=== PATIENT | female | born 1965 | race American Indian/Alaskan Native ===

== ENCOUNTER 2016-11-03 11:15 | Inpatient (IN) | payer OTHER ==
[2016-11-03 12:00] LABS: Hematocrit 37.9 % (30.3-42.9); Hemoglobin 12.7 gm/dl (10.1-14.3); Mean Corpuscular HGB Conc 33 % (30-34); Mean Corpuscular Hemoglobin 30 pg (28-32); Mean Corpuscular Volume 90 fl (79-97); Platelet Count 346 K/mm3 (140-440); Red Blood Count 4.22 M/mm3 (3.65-5.03); White Blood Count 5.8 K/mm3 (4.5-11.0)
[2016-11-03 12:10] LABS: INR 1.03 (0.87-1.13); Partial Thromboplastin Time 27.2 Sec. (24.2-36.6)
--- NOTE | 2016-11-03 12:21 | Cat Scan Report ---
HEAD CT WITHOUT CONTRAST INDICATION: Neurologic deficits less than 6 hours or symptoms present upon awakening. 98N. COMPARISON: None similar. FINDINGS: Noncontrast head CT demonstrates normal ventricles. Symmetric, mild sulcal enlargement predominantly bifrontal and extending to the vertex. No acute or recent infarct, hemorrhage, mass effect or midline shift. Approximately 6 mm right inferior ganglionic hypodensity, possibly lacunar infarct or prominent perivascular space, amongst others as on axial series 2, image 20. No abnormal extra-axial fluid collections. Posterior fossa structures and basilar cisterns appear within normal limits. Right posterior ethmoid air cell opacification. Slight right sphenoid sinus mucosal thickening anteriorly as well. Clear remainder imaged frontal sinuses and mastoid air cells. Streak artifact from right earring. Radiopaque dental material anteriorly. Intact calvarium. Approximately 7 mm high right parietal scalp soft tissue density, axial image 50, possibly a sebaceous cyst. CONCLUSION: No acute intracranial CT abnormality with few other findings, as above. MRI is more sensitive for detection of acute infarct and may be useful for further evaluation in the setting of a focal neurologic deficit. I phoned the above results to Dr. Galvez in the ER, 12:15 PM, 11/03/2016. Thank you for the opportunity to participate in this patient's care.
[2016-11-03] MEDS ORDERED: ATIVAN ONE (12:31)
[2016-11-03] MEDS ORDERED: ATIVAN IV ONE ×2 (12:33→15:10)
--- NOTE | 2016-11-03 12:41 | Emergency Department Report ---
HPI - General Chief Complaint: High BP Time Seen by Provider: 11/03/16 12:25 - HPI HPI: Chief complaint: Shaking and weakness HPI: Patient is a 51-year-old female with a history of alcohol abuse, pancreatitis who presents today with diffuse shaking of her hands and generalized weakness. Patient states she drinks vodka every day at least 2 drinks and had more than usual last night the [employer]. Patient complains of occasional blurred vision. Patient complains of the left side of her face feels funny for the last several weeks. Patient states that family in her hands started this morning. Mode of arrival: EMS Source: Patient and old chart Began: See above Duration: See above Context: See above. No history of stroke. Patient is noncompliant with her blood pressure medicine. Quality: Patient denies pain Severity: 0 out of 10 Improved with: Trembling improved with Ativan Worsened with: Nothing Associated signs and symptoms: Occasional shortness of breath ED Past Medical Hx - Past Medical History Previous Medical History?: Yes Hx Hypertension: Yes Additional medical history: Pancreatitis - Surgical History Hx Cholecystectomy: Yes - Social History Smoking Status: Current Every Day Smoker Substance Use Type: Alcohol - Medications Home Medications: Home Medications Medication Instructions Recorded Confirmed Last Taken Type No Known Home Medications [No 11/03/16 11/03/16 Unknown History Reported Home Medications] ED Review of Systems ROS: Stated complaint: SHAKING/WEAK Other details as noted in HPI ROS Constitutional: No fever ENT: No uri symptoms Cardiovascular: No chest pain Respiratory: No sob or cough GI: No nausea vomiting or diarrhea : No dysuria frequency or urgency, Skin: No rash Neuro: No focal weakness , complains of left facial numbness Psych: Alcohol abuse Yan/lymph: No edema Physical Exam - Physical Exam Vital Signs: Vital Signs 11/03/16 11/03/16 11/03/16 11:28 11:30 11:31 Temperature 98.1 F Pulse Rate 110 H 110 H Respiratory 25 H 16 Rate Blood Pressure 197/122 197/122 Blood Pressure [Left] O2 Sat by Pulse 98 97 99 Oximetry 11/03/16 11/03/16 11/03/16 11:39 11:40 12:14 Temperature 98.1 F Pulse Rate 105 H 97 H 93 H Respiratory 16 21 27 H Rate Blood Pressure 187/109 Blood Pressure 197/122 [Left] O2 Sat by Pulse 99 99 98 Oximetry 11/03/16 12:22 Temperature Pulse Rate Respiratory 16 Rate Blood Pressure Blood Pressure [Left] O2 Sat by Pulse Oximetry Physical Exam: GENERAL: The patient is well-developed well-nourished . She is hypertensive. HEENT: Normocephalic. Atraumatic. Extraocular motions are intact. Patient has moist mucous membranes. NECK: Supple. No meningitic signs are noted. There is no adenopathy noted. CHEST/LUNGS: Clear to auscultation. There is no respiratory distress noted. HEART/CARDIOVASCULAR: Regular. There is mild tachycardia. There is no gallop rub or murmur. ABDOMEN: Abdomen is soft, nontender. Patient has normal bowel sounds. There is no abdominal distention. SKIN: There is no rash. There is no edema. There is no diaphoresis. NEURO: The patient is awake, alert, and oriented. The patient is cooperative. The patient has no focal neurologic deficits. Patient is tremulous. The patient has normal speech. MUSCULOSKELETAL: There is no tenderness or deformity. There is no limitation range of motion. There is no evidence of acute injury. ED Course Vital Signs 11/03/16 11/03/16 11/03/16 11:28 11:30 11:31 Temperature 98.1 F Pulse Rate 110 H 110 H Respiratory 25 H 16 Rate Blood Pressure 197/122 197/122 Blood Pressure [Left] O2 Sat by Pulse 98 97 99 Oximetry 11/03/16 11/03/16 11/03/16 11:39 11:40 12:14 Temperature 98.1 F Pulse Rate 105 H 97 H 93 H Respiratory 16 21 27 H Rate Blood Pressure 187/109 Blood Pressure 197/122 [Left] O2 Sat by Pulse 99 99 98 Oximetry 11/03/16 12:22 Temperature Pulse Rate Respiratory 16 Rate Blood Pressure Blood Pressure [Left] O2 Sat by Pulse Oximetry - Reevaluation(s) Reevaluation #1: 11/03/16 14:50 Patient was given 1 mg of Ativan which she states improved her trembling. ED Medical Decision Making - Lab Data Result diagrams: 11/03/16 11:47 11/03/16 11:47 Laboratory Tests 12/19/14 11/03/16 11/03/16 09:30 12:38 12:38 Magnesium 1.0 L Alkaline Phosphatase 148 H Albumin 3.8 L Lipase 159 H Ur Leukocyte Esterase Neg Urine WBC (Auto) 11.0 H Urine RBC (Auto) 9.0 U Epithel Cells (Auto) 7.0 Urine Bacteria (Auto) 1+ Urine HCG, Qual Negative Plasma/Serum Alcohol 0.07 - EKG Data -: EKG Interpreted by Me EKG shows normal: sinus rhythm Rate: tachycardia (102) - EKG Data When compared to previous EKG there are: previous EKG unavailable Interpretation: nonspecific ST-T wave janice - Radiology Data Radiology results: report reviewed (CT head shows no acute process. Positive for atrophy.) Critical care attestation.: If time is entered above; I have spent that time in minutes in the direct care of this critically ill patient, excluding procedure time. ED Disposition Clinical Impression: Hypomagnesemia, Hypokalemia Alcohol withdrawal Qualifiers: Complication of substance-induced condition: with unspecified complication Qualified Code(s): F10.239 - Alcohol dependence with withdrawal, unspecified Acute pancreatitis Qualifiers: Pancreatitis type: alcohol induced Acute pancreatitis complication: unspecified Qualified Code(s): K85.20 - Alcohol induced acute pancreatitis without necrosis or infection Hypertension Qualifiers: Hypertension type: essential hypertension Qualified Code(s): I10 - Essential ( primary) hypertension Disposition: OP ADMITTED IP TO THIS HOSP Is pt being admited?: Yes Does the pt Need Aspirin: Yes Condition: Fair Instructions: Hypertension (ED) Referrals: PRIMARY CARE, [Primary Care Provider] - 3-5 Days Time of Disposition: 15:02 (admit to the hospitalist)
[2016-11-03 12:46] LABS: Blastocytes % (Manual) 0 %
[2016-11-03 12:48] LABS: Diff Status Complete; Hypochromasia Few
[2016-11-03 13:11] LABS: Alanine Aminotransferase 21 units/L (7-56); Albumin 3.8 g/dL (3.9-5); Albumin/Globulin Ratio 1.1 %; Alkaline Phosphatase 148 units/L (35-129); Bilirubin,Total 0.5 mg/dL (0.1-1.2); Lipase 159 units/L (13-60); Total Protein 7.4 g/dL (6.3-8.2)
[2016-11-03 13:23] LABS: Anion Gap 30 mmol/L; BUN/Creatinine Ratio 8.57; Blood Urea Nitrogen 6 mg/dL (7-17); Calcium 8.6 mg/dL (8.4-10.2); Carbon Dioxide 18 mmol/L (22-30); Chloride 102.9 mmol/L (98-107); Glucose 93 mg/dL (65-100); Potassium 3.2 mmol/L (3.6-5.0); Sodium 148 mmol/L (137-145)
[2016-11-03] MEDS ORDERED: VITAMIN B-1 100 MG in NACL 0.9% 50 ML IV ONE (13:32)
[2016-11-03 13:39] LABS: Bilirubin,Direct < 0.2 mg/dL (0-0.2)
[2016-11-03] MEDS ORDERED: MAGNESIUM SULFATE 2GM/50ML 2 GM/50 ML BAG IV ONE (14:47)
[2016-11-03] MEDS ORDERED: K-DUR PO ONE (15:02)
[2016-11-03] MEDS ORDERED: ASPIRIN PO ONE (15:04)
--- NOTE | 2016-11-03 15:05 | Admit Criteria Form ---
Admission Criteria Documentation: ALCOHOL AND PSYCHOACTIVE SUBSTANCE WITHDRAWAL Clinical Indications for Inpatient Care (Place ' X' for any and all applicable criteria): Ongoing inpatient care may be indicated for substance withdrawal[B][C] with ANY ONE of the following(1)(2)(3)(4)(21): [ ]I. Delirium due to alcohol or sedative[D] withdrawal is present. [ X]II. Marked signs of withdrawal are present as indicated by ANY ONE of the following(15)(22)(23) [ ]a) Heart rate greater than 120 beats per minute is present. [ ]b) Severe vomiting is present (eg, precludes maintenance of oral hydration). [X ]c) Grossly visible tremor is present. [ ]d) Profuse perspiration is present. [ ]e) Temperature greater than 101 degrees F (38.3 degrees C) is present. [ ]f) Other signs of severe withdrawal are present (eg, Altered mental status ) [ ]g) Severe withdrawal identified by standardized assessment score[A] [ ]III. Signs of withdrawal that require continued inpatient treatment as indicated by ANY ONE of the following(15)(22)(23): [ ]a) Inadequate response to pharmacotherapy (eg, benzodiazepines) [ ]b) Outpatient or lower level of care is not feasible or appropriate (eg, unavailable or inappropriate to patient condition or treatment history). [ ]IV. Withdrawal signs with high-risk indicator are present as manifested by ALL of the following[A](15)(22)(23) [ ]a) Signs of withdrawal are present as indicated by ANY ONE of the following: [ ]i. Tachycardia is present. [ ]ii. Nausea or vomiting is present. [ ]iii. Tremor is present. [ ]iv. Increased perspiration is present. [ ]v. Other signs of withdrawal are present. [ ]vi. Withdrawal identified by standardized assessment score [A] [ ]b) Elevated risk due to historical or comorbid factor is present as indicated by ANY ONE of the following: [ ]i. History of delirium due to withdrawal is present. [ ]ii. History of seizures due to withdrawal is present.[E] [ ]iii. Intrinsic seizure disorder (epilepsy) is present. [ ]iv. Patient is . [ ]v. Other significant medical history (eg, severe cardiac disease) is present, which is assessed to be at risk for destabilization due to withdrawal. [ X]V. Serious electrolyte abnormalities (eg, hyponatremia, hypokalemia, hypophosphatemia) requiring correction performable only in inpatient setting(6)(25) [ ]. Severe hypoglycemia requiring glucose infusions performable only in inpatient setting(6) [ ]VII. Drug toxicity or instability, such as Altered mental status, respiratory depression, or arrhythmias, that requires inpatient care [ ]VIII. Danger judged unmanageable at lower level of care because of ANY ONE of the following [ ]a) Danger to self [ ]b) Danger to others [ ]c) Grave disability (eg, inability to perform self-care necessary at lower level of care) The original [facility] Care Guidelines content created by [facility] has been revised. The portions of the content which have been revised are identified through the use of italic text or in bold. [facility] Care Guidelines has neither reviewed nor approved the modified material. All other unmodified content is copyright [facility] Care [facility]. Please see references footnoted in the original [facility] Care[facility] edition 2016 Admission Criteria Met: Yes
--- NOTE | 2016-11-03 15:14 | XRay Report ---
CHEST ONE VIEW INDICATION: Shortness of breath. COMPARISON: 10/13/2007. FINDINGS: Portable, single, frontal chest radiograph demonstrates now normal cardiomediastinal silhouette. Clear lungs. Unremarkable bones. Extrinsic EKG leads. CONCLUSION: No acute disease in the chest. Thank you for the opportunity to participate in this patient's care.
[2016-11-03] MEDS ORDERED: DULCOLAX PR PRN (15:31)
[2016-11-03] MEDS ORDERED: ATIVAN IV PRN ×2 (15:31)
[2016-11-03] MEDS ORDERED: MILK OF MAGNESIA PO PRN (15:31)
[2016-11-03] MEDS ORDERED: MOTRIN PO PRN (15:31)
[2016-11-03] MEDS ORDERED: ZOFRAN IV PRN (15:31)
[2016-11-03] MEDS ORDERED: NS/KCL 20MEQ 20 MEQ/1,000 ML BAG IV SCH (16:00)
[2016-11-03] MEDS ORDERED: LIBRIUM ONE (17:38)
[2016-11-03] MEDS: LIBRIUM PO SCH (17:43)
[2016-11-03] MEDS: 1: FOLVITE 1 MG, INFUVITE 10 ML, VITAMIN B-1 100 MG in NACL 0.9% 1000 ML 988.8 ML 2: NA IV SCH (18:40)
--- NOTE | 2016-11-03 19:42 | History and Physical Report ---
History of Present Illness Date of examination: 11/03/16 Date of admission: 11/03/16 15:31 Chief complaint: Withdrawal History of present illness: Patient is a 52-year-old female with past medical history of hypertension, pancreatitis secondary to alcohol abuse, alcohol dependence who presents to the ER with complaints of diffuse shaking and generalized weakness. Patient reports that she favors vodka every day claims she drinks about 2 drinks a day but unable to quantify this. She reports that she did have a little bit more last night due to the [employer]. In the ER she had mentioned left-sided face feeling funny for the last several weeks but did not endorse this to me. I asked that she has any weakness on any side she just states that her whole body' s week.She's been tremulous since this morning. She denies Blurred vision, denies any vomiting or diarrhea. She does report nausea. She denies any abdominal pain or chest pain and this time. ROS Constitutional: Reports generalized weakness and fatigue No fever, or weight loss. Skin: No rash. Eyes: No recent vision problems or eye pain. ENT: No congestion, ear pain, or sore throat. Endocrine: No thyroid problems. Cardiovascular: No chest pain. Respiratory: No cough, shortness of breath, congestion, or wheezing. Gastrointestinal: No abdominal pain, nausea, vomiting, or diarrhea. Genitourinary: No dysuria. Musculoskeletal: No joint swelling. Neurologic: No seizures but reports generalized tremor. Hematologic: No unusual bruising or bleeding. Psychiatric: No psychiatric problems, hallucinations or depression. All other systems reviewed and otherwise negative. Past History Past Medical History: hypertension, other (alcohol dependence) Past Surgical History: cholecystectomy Social history: , alcohol abuse, full code. denies: smoking, prescription drug abuse, IV drug use Family history: diabetes, hypertension Medications and Allergies Allergies Allergy/AdvReac Type Severity Reaction Status Date / Time codeine Allergy Itching Verified 07/27/14 08:15 Home Medications Medication Instructions Recorded Confirmed Last Taken Type No Known Home Medications [No 11/03/16 11/03/16 Unknown History Reported Home Medications] Active Meds: Active Medications Bisacodyl (Dulcolax) 10 mg MI QDAY PRN PRN Reason: Constipation unrelieved by MOM Chlordiazepoxide HCl (Librium) 25 mg PO DAILY YUMIKO Last Admin: 11/03/16 17:43 Dose: 25 mg Folic Acid 1 mg/ Multivitamins /Minerals 10 ml/ Thiamine HCl 100 mg/ Sodium Chloride 1,000 mls @ 125 mls/hr IV .BY DURATION [facility] Last Admin: 11/03/16 18:40 Dose: 125 mls/hr Sodium Chloride (Nacl 0.9% 1000 Ml) 1,000 mls @ 125 mls/hr IV .BY DURATION [facility] Potassium Chloride/Sodium Chloride (Ns/Kcl 20meq) 20 meq in 1,000 mls @ 125 mls /hr IV DIRECT YUMIKO Ibuprofen (Motrin) 600 mg PO Q6H PRN PRN Reason: Pain, Mild (1-3) Lorazepam (Ativan) 2 mg IV Q1H PRN PRN Reason: CIWA-Ar 8-15 Lorazepam (Ativan) 4 mg IV Q1H PRN PRN Reason: CIWA-Ar 16-25 Magnesium Hydroxide (Milk Of Magnesia) 30 ml PO Q4H PRN PRN Reason: Constipation Ondansetron HCl (Zofran) 4 mg IV Q8H PRN PRN Reason: N/V unrelieved by Reglan Exam - Physical Exam Narrative exam: VITAL SIGNS: Reviewed. GENERAL: The patient appeared well nourished and normally developed. Vital signs as documented. HEAD: No signs of head trauma. EYES: Pupils are equal. Extraocular motions intact. EARS: Hearing grossly intact. MOUTH: Oropharynx is normal. NECK: No adenopathy, no JVD. CHEST: Chest with clear breath sounds bilaterally. No wheezes, rales, or rhonchi. CARDIAC: Regular rate and rhythm. S1 and S2, without murmurs, gallops, or rubs. VASCULAR: No Edema. Peripheral pulses normal and equal in all extremities. ABDOMEN: Soft, without detectable tenderness. No sign of distention. No rebound or guarding, and no masses palpated. Bowel Sounds normal. MUSCULOSKELETAL: Good range of motion of all major joints. gait is not assessed. Extremities without clubbing, cyanosis or edema. NEUROLOGIC EXAM: Awake but lethargic, oriented x 3. Generalized tremor. No focal sensory or strength deficits. Speech normal. Follows commands. PSYCHIATRIC: Mood normal. SKIN: No rash or lesions. - Constitutional Vitals: Temp Pulse Resp BP Pulse Ox 98.1 F 88 15 151/93 97 11/03/16 11:39 11/03/16 19:00 11/03/16 19:00 11/03/16 19:00 11/03/16 19:00 Results - Labs CBC & Chem 7: 11/03/16 11:47 11/03/16 11:47 Labs: Laboratory Last Values WBC 5.8 K/mm3 (4.5-11.0) 11/03/16 11:47 RBC 4.22 M/mm3 (3.65-5.03) 11/03/16 11:47 Hgb 12.7 gm/dl (10.1-14.3) 11/03/16 11:47 Hct 37.9 % (30.3-42.9) 11/03/16 11:47 MCV 90 fl (79-97) 11/03/16 11:47 MCH 30 pg (28-32) 11/03/16 11:47 MCHC 33 % (30-34) 11/03/16 11:47 RDW 15.0 % (13.2-15.2) 11/03/16 11:47 Plt Count 346 K/mm3 (140-440) 11/03/16 11:47 Isabela % (Auto) Trim Machine Operator 11/03/16 11:47 Add Manual Diff Complete 11/03/16 11:47 Total Counted 100 11/03/16 11:47 Seg Neuts % (Manual) 85.0 % (40.0-70.0) H 11/03/16 11:47 Band Neutrophils % 0 % 11/03/16 11:47 Lymphocytes % (Manual) 10.0 % (13.4-35.0) L 11/03/16 11:47 Reactive Lymphs % (Man) 0 % 11/03/16 11:47 Monocytes % (Manual) 1.0 % (0.0-7.3) 11/03/16 11:47 Eosinophils % (Manual) 3.0 % (0.0-4.3) 11/03/16 11:47 Basophils % (Manual) 1.0 % (0.0-1.8) 11/03/16 11:47 Metamyelocytes % 0 % 11/03/16 11:47 Myelocytes % 0 % 11/03/16 11:47 Promyelocytes % 0 % 11/03/16 11:47 Blast Cells % 0 % 11/03/16 11:47 Nucleated RBC % Not Reportable 11/03/16 11:47 Seg Neutrophils # Man 4.9 K/mm3 (1.8-7.7) 11/03/16 11:47 Band Neutrophils # 0.0 K/mm3 11/03/16 11:47 Lymphocytes # (Manual) 0.6 K/mm3 (1.2-5.4) L 11/03/16 11:47 Abs React Lymphs (Man) 0.0 K/mm3 11/03/16 11:47 Monocytes # (Manual) 0.1 K/mm3 (0.0-0.8) 11/03/16 11:47 Eosinophils # (Manual) 0.2 K/mm3 (0.0-0.4) 11/03/16 11:47 Basophils # (Manual) 0.1 K/mm3 (0.0-0.1) 11/03/16 11:47 Metamyelocytes # 0.0 K/mm3 11/03/16 11:47 Myelocytes # 0.0 K/mm3 11/03/16 11:47 Promyelocytes # 0.0 K/mm3 11/03/16 11:47 Blast Cells # 0.0 K/mm3 11/03/16 11:47 WBC Morphology Not Reportable 11/03/16 11:47 Hypersegmented Neuts Not Reportable 11/03/16 11:47 Hyposegmented Neuts Not Reportable 11/03/16 11:47 Hypogranular Neuts Not Reportable 11/03/16 11:47 Smudge Cells Not Reportable 11/03/16 11:47 Toxic Granulation Not Reportable 11/03/16 11:47 Toxic Vacuolation Not Reportable 11/03/16 11:47 Dohle Bodies Not Reportable 11/03/16 11:47 Pelger-Huet Anomaly Not Reportable 11/03/16 11:47 Taniya Rods Not Reportable 11/03/16 11:47 Platelet Estimate Appears normal 11/03/16 11:47 Clumped Platelets Not Reportable 11/03/16 11:47 Plt Clumps, EDTA Not Reportable 11/03/16 11:47 Large Platelets Not Reportable 11/03/16 11:47 Giant Platelets Not Reportable 11/03/16 11:47 Platelet Satelliting Not Reportable 11/03/16 11:47 Plt Morphology Comment Not Reportable 11/03/16 11:47 RBC Morphology Not Reportable 11/03/16 11:47 Dimorphic RBCs Not Reportable 11/03/16 11:47 Polychromasia Not Reportable 11/03/16 11:47 Hypochromasia Few 11/03/16 11:47 Poikilocytosis Not Reportable 11/03/16 11:47 Anisocytosis Not Reportable 11/03/16 11:47 Microcytosis Not Reportable 11/03/16 11:47 Macrocytosis Not Reportable 11/03/16 11:47 Spherocytes Not Reportable 11/03/16 11:47 Pappenheimer Bodies Not Reportable 11/03/16 11:47 Sickle Cells Not Reportable 11/03/16 11:47 Target Cells Not Reportable 11/03/16 11:47 Tear Drop Cells Not Reportable 11/03/16 11:47 Ovalocytes Not Reportable 11/03/16 11:47 Helmet Cells Not Reportable 11/03/16 11:47 Amato-Longdale Bodies Not Reportable 11/03/16 11:47 [place] Rings Not Reportable 11/03/16 11:47 [place] Cells Not Reportable 11/03/16 11:47 Bite Cells Not Reportable 11/03/16 11:47 Crenated Cell Not Reportable 11/03/16 11:47 Elliptocytes Not Reportable 11/03/16 11:47 Acanthocytes (Spur) Not Reportable 11/03/16 11:47 Rouleaux Not Reportable 11/03/16 11:47 Hemoglobin C Crystals Not Reportable 11/03/16 11:47 Schistocytes Not Reportable 11/03/16 11:47 Malaria parasites Not Reportable 11/03/16 11:47 Ryne Bodies Not Reportable 11/03/16 11:47 Hem Pathologist Commnt No 11/03/16 11:47 PT 13.4 Sec. (12.2-14.9) 11/03/16 11:47 INR 1.03 (0.87-1.13) 11/03/16 11:47 APTT 27.2 Sec. (24.2-36.6) 11/03/16 11:47 Sodium 148 mmol/L (137-145) H 11/03/16 11:47 Potassium 3.2 mmol/L (3.6-5.0) L 11/03/16 11:47 Chloride 102.9 mmol/L (98-107) 11/03/16 11:47 Carbon Dioxide 18 mmol/L (22-30) L 11/03/16 11:47 Anion Gap 30 mmol/L 11/03/16 11:47 BUN 6 mg/dL (7-17) L 11/03/16 11:47 Creatinine 0.7 mg/dL (0.7-1.2) 11/03/16 11:47 Estimated GFR > 60 ml/min 11/03/16 11:47 BUN/Creatinine Ratio 8.57 % 11/03/16 11:47 Glucose 93 mg/dL (65-100) 11/03/16 11:47 Calcium 8.6 mg/dL (8.4-10.2) 11/03/16 11:47 Phosphorus 2.8 mg/dL (2.5-4.5) 11/03/16 15:59 Magnesium 1.0 mg/dL (1.7-2.3) L 11/03/16 12:38 Total Bilirubin 0.5 mg/dL (0.1-1.2) 11/03/16 12:38 Direct Bilirubin < 0.2 mg/dL (0-0.2) 11/03/16 12:38 AST 35 units/L (5-40) 11/03/16 12:38 ALT 21 units/L (7-56) 11/03/16 12:38 Alkaline Phosphatase 148 units/L (35-129) H 11/03/16 12:38 Troponin T < 0.010 ng/mL (0.00-0.029) 11/03/16 11:47 Total Protein 7.4 g/dL (6.3-8.2) 11/03/16 12:38 Albumin 3.8 g/dL (3.9-5) L 11/03/16 12:38 Albumin/Globulin Ratio 1.1 % 11/03/16 12:38 Lipase 159 units/L (13-60) H 11/03/16 12:38 Plasma/Serum Alcohol 0.07 gm% (0-0.07) 11/03/16 12:38 - Imaging and Cardiology Chest x-ray: image reviewed (no acute pathology) Assessment and Plan Assessment and plan: Patient is a 52-year-old female with past medical history of hypertension, pancreatitis secondary to alcohol abuse, alcohol dependence who presents to the ER with complaints of diffuse shaking and generalized weakness. Patient reports that she favors vodka every day claims she drinks about 2 drinks a day but unable to quantify this. She reports that she did have a little bit more last night due to the [employer]. In the ER she had mentioned left-sided face feeling funny for the last several weeks but did not endorse this to me. I asked that she has any weakness on any side she just states that her whole body' s week.She's been tremulous since this morning. She denies Blurred vision, denies any vomiting or diarrhea. She does report nausea. She denies any abdominal pain or chest pain and this time. * Moderate Alcohol withdrawal * Hypokalemia likely secondary to alcohol abuse * Alcohol dependence * Hypomagnesemia * Chronic pancreatitis * Metabolic acidosis Plan * Admit to medical floor, seizure precautions * Start on banana bag * Monitor blood pressure will hold all antihypertensives at this time * CIWA protocol * Extensive counseling provided to the patient and need to quit alcohol use. * Replace electrolytes * Discussed with ER physician * DVT/GI porphylaxis Advance Directives: Yes Plan of care discussed with patient/family: Yes
[2016-11-04] MEDS: 1: FOLVITE 1 MG, INFUVITE 10 ML, VITAMIN B-1 100 MG in NACL 0.9% 1000 ML 988.8 ML 2: NA IV SCH ×2 (02:00→10:36)
[2016-11-04 05:55] LABS: Basophils % (Auto) 0.8 % (0.0-1.8); Eosinophils % (Auto) 3.6 % (0.0-4.3); Hematocrit 34.9 % (30.3-42.9); Hemoglobin 11.7 gm/dl (10.1-14.3); Mean Corpuscular HGB Conc 34 % (30-34); Mean Corpuscular Hemoglobin 30 pg (28-32); Mean Corpuscular Volume 88 fl (79-97); Platelet Count 303 K/mm3 (140-440); Red Blood Count 3.96 M/mm3 (3.65-5.03); Red Cell Distribution Width 14.6 % (13.2-15.2); White Blood Count 5.6 K/mm3 (4.5-11.0)
[2016-11-04 06:14] LABS: Alanine Aminotransferase 17 units/L (7-56); Albumin 3.5 g/dL (3.9-5); Albumin/Globulin Ratio 1.2 %; Alkaline Phosphatase 143 units/L (35-129); BUN/Creatinine Ratio 8.57; Bilirubin,Total 0.9 mg/dL (0.1-1.2); Blood Urea Nitrogen 6 mg/dL (7-17); Calcium 7.5 mg/dL (8.4-10.2); Carbon Dioxide 26 mmol/L (22-30); Chloride 99.8 mmol/L (98-107); Glucose 104 mg/dL (65-100); Lipase 240 units/L (13-60); Total Protein 6.5 g/dL (6.3-8.2)
[2016-11-04 06:54] LABS: Anion Gap 15 mmol/L; Sodium 138 mmol/L (137-145)
[2016-11-04] MEDS ORDERED: APRESOLINE IV PRN (08:15)
[2016-11-04] MEDS ORDERED: K-DUR PO ONE ×2 (09:00→18:00)
[2016-11-04] MEDS: LIBRIUM PO SCH (09:02)
[2016-11-04] MEDS: LOPRESSOR PO SCH ×2 (09:02→21:51)
[2016-11-04] MEDS ORDERED: VITAMIN B-1 100 MG, FOLVITE 1 MG, INFUVITE 10 ML in NACL 0.9% 1000 ML 1,000 ML IV SCH (10:00)
--- NOTE | 2016-11-04 17:07 | Progress Note ---
Assessment and Plan Assessment and plan: Patient is a 52-year-old female with past medical history of hypertension, pancreatitis secondary to alcohol abuse, alcohol dependence who presents to the ER with complaints of diffuse shaking and generalized weakness. Patient reports that she favors vodka every day claims she drinks about 2 drinks a day but unable to quantify this. She reports that she did have a little bit more last night due to the [place]. In the ER she had mentioned left-sided face feeling funny for the last several weeks but did not endorse this to me. I asked that she has any weakness on any side she just states that her whole body' s week.She's been tremulous since this morning. She denies Blurred vision, denies any vomiting or diarrhea. She does report nausea. She denies any abdominal pain or chest pain and this time. * Moderate Alcohol withdrawal * Hypertensive urgency * Hypokalemia likely secondary to alcohol abuse * Alcohol dependence * Hypomagnesemia * Chronic pancreatitis * Metabolic acidosis Plan * Continue seizure precautions, will switch to by mouth medications at this point. If remains improved and her gait more improved with discharged tomorrow * Replace potassium * We'll add metoprolol and when necessary hydralazine for blood pressure control * Monitor blood pressure will hold all antihypertensives at this time * CIWA protocol * Extensive counseling again provided to the patient and need to quit alcohol use. 15 minutes spent resources discussed in detail * Replace electrolytes * DVT/GI porphylaxis History Interval history: Follow-up patient admitted with alcohol withdrawal Patient seen and examined this morning in no acute distress, still with tremulous unsteady gait, still at risk. Denies any chest pain, nausea, vomiting, diarrhea No fever noted blood pressure controlled No adverse events reported to me by nursing staff Hospitalist Physical - Physical exam Narrative exam: VITAL SIGNS: Reviewed. GENERAL: The patient appeared well nourished and normally developed. Vital signs as documented. HEAD: No signs of head trauma. EYES: Pupils are equal. Extraocular motions intact. EARS: Hearing grossly intact. MOUTH: Oropharynx is normal. NECK: No adenopathy, no JVD. CHEST: Chest with clear breath sounds bilaterally. No wheezes, rales, or rhonchi. CARDIAC: Regular rate and rhythm. S1 and S2, without murmurs, gallops, or rubs. VASCULAR: No Edema. Peripheral pulses normal and equal in all extremities. ABDOMEN: Soft, without detectable tenderness. No sign of distention. No rebound or guarding, and no masses palpated. Bowel Sounds normal. MUSCULOSKELETAL: Good range of motion of all major joints. gait is not assessed. Extremities without clubbing, cyanosis or edema. NEUROLOGIC EXAM: Awake , oriented x 3. Tremor persist, unsteady gait. No focal sensory or strength deficits. Speech normal. Follows commands. PSYCHIATRIC: Mood normal. SKIN: No rash or lesions. - Constitutional Vitals: Temp Pulse Resp BP Pulse Ox 98.9 F 78 22 164/108 98 11/04/16 16:11 11/04/16 16:11 11/04/16 16:11 11/04/16 16:11 11/04/16 08:48 Results - Labs CBC & Chem 7: 11/04/16 05:40 11/04/16 05:40 Labs: Laboratory Last Values WBC 5.6 K/mm3 (4.5-11.0) 11/04/16 05:40 RBC 3.96 M/mm3 (3.65-5.03) 11/04/16 05:40 Hgb 11.7 gm/dl (10.1-14.3) 11/04/16 05:40 Hct 34.9 % (30.3-42.9) 11/04/16 05:40 MCV 88 fl (79-97) 11/04/16 05:40 MCH 30 pg (28-32) 11/04/16 05:40 MCHC 34 % (30-34) 11/04/16 05:40 RDW 14.6 % (13.2-15.2) 11/04/16 05:40 Plt Count 303 K/mm3 (140-440) 11/04/16 05:40 Lymph % (Auto) 21.7 % (13.4-35.0) 11/04/16 05:40 Gem % (Auto) 7.7 % (0.0-7.3) H 11/04/16 05:40 Eos % (Auto) 3.6 % (0.0-4.3) 11/04/16 05:40 Baso % (Auto) 0.8 % (0.0-1.8) 11/04/16 05:40 Lymph # 1.2 K/mm3 (1.2-5.4) 11/04/16 05:40 Gem # 0.4 K/mm3 (0.0-0.8) 11/04/16 05:40 Eos # 0.2 K/mm3 (0.0-0.4) 11/04/16 05:40 Baso # 0.0 K/mm3 (0.0-0.1) 11/04/16 05:40 Add Manual Diff Complete 11/03/16 11:47 Total Counted 100 11/03/16 11:47 Seg Neutrophils % 66.2 % (40.0-70.0) 11/04/16 05:40 Seg Neuts % (Manual) 85.0 % (40.0-70.0) H 11/03/16 11:47 Band Neutrophils % 0 % 11/03/16 11:47 Lymphocytes % (Manual) 10.0 % (13.4-35.0) L 11/03/16 11:47 Reactive Lymphs % (Man) 0 % 11/03/16 11:47 Monocytes % (Manual) 1.0 % (0.0-7.3) 11/03/16 11:47 Eosinophils % (Manual) 3.0 % (0.0-4.3) 11/03/16 11:47 Basophils % (Manual) 1.0 % (0.0-1.8) 11/03/16 11:47 Metamyelocytes % 0 % 11/03/16 11:47 Myelocytes % 0 % 11/03/16 11:47 Promyelocytes % 0 % 11/03/16 11:47 Blast Cells % 0 % 11/03/16 11:47 Nucleated RBC % Not Reportable 11/03/16 11:47 Seg Neutrophils # 3.7 K/mm3 (1.8-7.7) 11/04/16 05:40 Seg Neutrophils # Man 4.9 K/mm3 (1.8-7.7) 11/03/16 11:47 Band Neutrophils # 0.0 K/mm3 11/03/16 11:47 Lymphocytes # (Manual) 0.6 K/mm3 (1.2-5.4) L 11/03/16 11:47 Abs React Lymphs (Man) 0.0 K/mm3 11/03/16 11:47 Monocytes # (Manual) 0.1 K/mm3 (0.0-0.8) 11/03/16 11:47 Eosinophils # (Manual) 0.2 K/mm3 (0.0-0.4) 11/03/16 11:47 Basophils # (Manual) 0.1 K/mm3 (0.0-0.1) 11/03/16 11:47 Metamyelocytes # 0.0 K/mm3 11/03/16 11:47 Myelocytes # 0.0 K/mm3 11/03/16 11:47 Promyelocytes # 0.0 K/mm3 11/03/16 11:47 Blast Cells # 0.0 K/mm3 11/03/16 11:47 WBC Morphology Not Reportable 11/03/16 11:47 Hypersegmented Neuts Not Reportable 11/03/16 11:47 Hyposegmented Neuts Not Reportable 11/03/16 11:47 Hypogranular Neuts Not Reportable 11/03/16 11:47 Smudge Cells Not Reportable 11/03/16 11:47 Toxic Granulation Not Reportable 11/03/16 11:47 Toxic Vacuolation Not Reportable 11/03/16 11:47 Dohle Bodies Not Reportable 11/03/16 11:47 Pelger-Huet Anomaly Not Reportable 11/03/16 11:47 Taniya Rods Not Reportable 11/03/16 11:47 Platelet Estimate Appears normal 11/03/16 11:47 Clumped Platelets Not Reportable 11/03/16 11:47 Plt Clumps, EDTA Not Reportable 11/03/16 11:47 Large Platelets Not Reportable 11/03/16 11:47 Giant Platelets Not Reportable 11/03/16 11:47 Platelet Satelliting Not Reportable 11/03/16 11:47 Plt Morphology Comment Not Reportable 11/03/16 11:47 RBC Morphology Not Reportable 11/03/16 11:47 Dimorphic RBCs Not Reportable 11/03/16 11:47 Polychromasia Not Reportable 11/03/16 11:47 Hypochromasia Few 11/03/16 11:47 Poikilocytosis Not Reportable 11/03/16 11:47 Anisocytosis Not Reportable 11/03/16 11:47 Microcytosis Not Reportable 11/03/16 11:47 Macrocytosis Not Reportable 11/03/16 11:47 Spherocytes Not Reportable 11/03/16 11:47 Pappenheimer Bodies Not Reportable 11/03/16 11:47 Sickle Cells Not Reportable 11/03/16 11:47 Target Cells Not Reportable 11/03/16 11:47 Tear Drop Cells Not Reportable 11/03/16 11:47 Ovalocytes Not Reportable 11/03/16 11:47 Helmet Cells Not Reportable 11/03/16 11:47 Amato-Rozel Bodies Not Reportable 11/03/16 11:47 Coy Rings Not Reportable 11/03/16 11:47 Brandon Cells Not Reportable 11/03/16 11:47 Bite Cells Not Reportable 11/03/16 11:47 Crenated Cell Not Reportable 11/03/16 11:47 Elliptocytes Not Reportable 11/03/16 11:47 Acanthocytes (Spur) Not Reportable 11/03/16 11:47 Rouleaux Not Reportable 11/03/16 11:47 Hemoglobin C Crystals Not Reportable 11/03/16 11:47 Schistocytes Not Reportable 11/03/16 11:47 Malaria parasites Not Reportable 11/03/16 11:47 Ryne Bodies Not Reportable 11/03/16 11:47 Hem Pathologist Commnt No 11/03/16 11:47 PT 13.4 Sec. (12.2-14.9) 11/03/16 11:47 INR 1.03 (0.87-1.13) 11/03/16 11:47 APTT 27.2 Sec. (24.2-36.6) 11/03/16 11:47 Sodium 138 mmol/L (137-145) D 11/04/16 05:40 Potassium 3.0 mmol/L (3.6-5.0) L 11/04/16 05:40 Chloride 99.8 mmol/L (98-107) 11/04/16 05:40 Carbon Dioxide 26 mmol/L (22-30) D 11/04/16 05:40 Anion Gap 15 mmol/L 11/04/16 05:40 BUN 6 mg/dL (7-17) L 11/04/16 05:40 Creatinine 0.7 mg/dL (0.7-1.2) 11/04/16 05:40 Estimated GFR > 60 ml/min 11/04/16 05:40 BUN/Creatinine Ratio 8.57 % 11/04/16 05:40 Glucose 104 mg/dL (65-100) H 11/04/16 05:40 Calcium 7.5 mg/dL (8.4-10.2) L 11/04/16 05:40 Phosphorus 2.8 mg/dL (2.5-4.5) 11/03/16 15:59 Magnesium 1.0 mg/dL (1.7-2.3) L 11/03/16 12:38 Total Bilirubin 0.9 mg/dL (0.1-1.2) 11/04/16 05:40 Direct Bilirubin < 0.2 mg/dL (0-0.2) 11/03/16 12:38 AST 27 units/L (5-40) 11/04/16 05:40 ALT 17 units/L (7-56) 11/04/16 05:40 Alkaline Phosphatase 143 units/L (35-129) H 11/04/16 05:40 Troponin T < 0.010 ng/mL (0.00-0.029) 11/03/16 11:47 Total Protein 6.5 g/dL (6.3-8.2) 11/04/16 05:40 Albumin 3.5 g/dL (3.9-5) L 11/04/16 05:40 Albumin/Globulin Ratio 1.2 % 11/04/16 05:40 Lipase 240 units/L (13-60) H 11/04/16 05:40 Plasma/Serum Alcohol 0.07 gm% (0-0.07) 11/03/16 12:38
[2016-11-05 07:24] LABS: Anion Gap 18 mmol/L; Blood Urea Nitrogen 7 mg/dL (7-17); Calcium 7.9 mg/dL (8.4-10.2); Carbon Dioxide 20 mmol/L (22-30); Chloride 102.2 mmol/L (98-107); Glucose 91 mg/dL (65-100); Potassium 3.6 mmol/L (3.6-5.0); Sodium 137 mmol/L (137-145)
--- NOTE | 2016-11-05 08:33 | Discharge Summary ---
Providers - Providers Date of Admission: 11/03/16 15:31 Date of discharge: 11/05/16 Attending physician: SUNG WERNER MD Primary care physician: ENVIRONMENTAL SAMPLER Hospitalization Reason for admission: alcohol withdrawal Condition: Fair Hospital course: Patient is a 52-year-old female with past medical history of hypertension, pancreatitis secondary to alcohol abuse, alcohol dependence who presents to the ER with complaints of diffuse shaking and generalized weakness. Patient reports that she favors vodka every day claims she drinks about 2 drinks a day but unable to quantify this. She reports that she did have a little bit more last night due to the [employer]. In the ER she had mentioned left-sided face feeling funny for the last several weeks but did not endorse this to me. I asked that she has any weakness on any side she just states that her whole body' s week.She's been tremulous since this morning. She denies Blurred vision, denies any vomiting or diarrhea. She does report nausea. She denies any abdominal pain or chest pain and this time. Patient was monitored in the hospital treated with scheduled impairment with good response. She is markedly improved and stable for discharge today. I've discussed with her extensively on the medications she is being discharged with include a blood pressure medication. She is to monitor blood pressure closely. Follow with her primary care doctor also recommended and related to alcohol anonymous. 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 This has been discussed with the patient that ordered vitamins off for her. If this persists she is to follow up her primary care physician for possible neuropathic management. * Moderate Alcohol withdrawal * Alcohol-induced neuropathy * Hypertensive urgency * Hypokalemia likely secondary to alcohol abuse * Alcohol dependence * Hypomagnesemia * Chronic pancreatitis * Metabolic acidosis Disposition: DISCHARGED TO HOME OR SELFCARE Time spent for discharge: 35 mins Core Measure Documentation - Palliative Care Palliative Care/ Comfort Measures: Not Applicable - Core Measures Any of the following diagnoses?: none - VTE Discharge Requirements Deep Vein Thrombosis/Pulmonary Embolism Present on Admission: No Exam - Physical Exam Narrative exam: VITAL SIGNS: Reviewed. GENERAL: The patient appeared well nourished and normally developed. Vital signs as documented. HEAD: No signs of head trauma. EYES: Pupils are equal. Extraocular motions intact. EARS: Hearing grossly intact. MOUTH: Oropharynx is normal. NECK: No adenopathy, no JVD. CHEST: Chest with clear breath sounds bilaterally. No wheezes, rales, or rhonchi. CARDIAC: Regular rate and rhythm. S1 and S2, without murmurs, gallops, or rubs. VASCULAR: No Edema. Peripheral pulses normal and equal in all extremities. ABDOMEN: Soft, without detectable tenderness. No sign of distention. No rebound or guarding, and no masses palpated. Bowel Sounds normal. MUSCULOSKELETAL: Good range of motion of all major joints. gait is not assessed. Extremities without clubbing, cyanosis or edema. NEUROLOGIC EXAM: Awake , oriented x 3. Gait steady, tremor very minimal.. No focal sensory or strength deficits. Speech normal. Follows commands. PSYCHIATRIC: Mood normal. SKIN: No rash or lesions. - Constitutional Vitals: Temp Pulse Resp BP Pulse Ox 98.4 F 76 20 155/104 97 11/05/16 04:00 11/05/16 04:00 11/05/16 04:00 11/05/16 04:00 11/04/16 20:00 Plan Activity: advance as tolerated, fall precautions Diet: regular Special Instructions: other (Alcohol cessation- Recommend enrolling in AA) Follow up with: PRIMARY CARE, [Primary Care Provider] - 3-5 Days Forms: Discharge Signature Page Prescriptions: chlordiazePOXIDE [Librium] 25 mg PO DAILY #5 capsule Folic Acid [Folvite] 1 mg PO DAILY #30 tablet Metoprolol [Lopressor TAB] 25 mg PO BID #60 tablet Multivitamin Tab [Multiple Vitamin TAB (Theragran)] 1 each PO DAILY #30 tablet Thiamine [Vitamin B-1] 100 mg PO QDAY #30 tablet
[2016-11-05 09:17] VITALS: BP 158/106
[2016-11-05] MEDS ORDERED: VITAMIN B-1 PO SCH (10:00)
[2016-11-05] MEDS ORDERED: THERAGRAN Tab PO SCH (10:00)
[2016-11-05] MEDS ORDERED: FOLVITE PO SCH (10:00)
[2016-11-05] MEDS: LOPRESSOR PO SCH (10:13)
[2016-11-05] MEDS: LIBRIUM PO SCH (10:13)
== END 2016-11-05 12:40 | disposition home or self-care (01) | DRG 896 ==
LOC: ED 11:15 → 3A 15:31
PROVIDERS: ADMIT Internal Medicine; ATTEND Internal Medicine
DX: F10.239 Alcohol dependence with withdrawal, unspecified (principal); K85.20 Alcohol induced acute pancreatitis without necrosis or infection; K86.0 Alcohol-induced chronic pancreatitis; E87.2 Acidosis; I10 Essential (primary) hypertension; Z90.49 Acquired absence of other specified parts of digestive tract; E83.42 Hypomagnesemia; E87.6 Hypokalemia; Z83.3 Family history of diabetes mellitus; Z82.49 Family history of ischemic heart disease and other diseases of the circulatory system; Z88.5 Allergy status to narcotic agent; I16.0 Hypertensive urgency; G62.1 Alcoholic polyneuropathy
CPT/HCPCS: 36415; 70450; 71010; 80048; 80053; 80074; 80320; 82962; 83690; 83735; 84100; 84484; 85007; 85025; 85610; 85730; 93005; 93010; 96365; 96367; 96375; G0480; J2060; J2405; J3411; J3475; J7030

== ENCOUNTER 2020-10-26 08:24 | Emergency (ER) | payer SELFPAY ==
[2020-10-26] MEDS ORDERED: oxyCODONE /ACETAMINOPHEN 5-325MG TAB PO ONE ×2 (09:28→11:58)
[2020-10-26] MEDS ORDERED: ONDANSETRON 4 MG ODT TAB PO ONE ×2 (09:28→11:58)
--- NOTE | 2020-10-26 09:28 | Emergency Department Report ---
ED General Adult HPI - General Chief complaint: Extremity Injury, Upper Stated complaint: FINGER INJURY Time Seen by Provider: 10/26/20 08:56 Source: patient Mode of arrival: Ambulatory Limitations: No Limitations - History of Present Illness Initial comments: 55-year-old -[place] female patient presents with complaints of left hand pain and injury after a fall yesterday. She states the fourth and fifth digit are painful and deformed with moderate swelling. She does admit to some numbness. Patient also has decreased range of motion. History of hypertension per patient. - Related Data Previous Rx's Medication Instructions Recorded Last Taken Type Folic Acid [Folvite] 1 mg PO DAILY #30 tablet 11/05/16 Unknown Rx Metoprolol [Lopressor TAB] 25 mg PO BID #60 tablet 11/05/16 Unknown Rx Multivitamin Tab [Multiple Vitamin 1 each PO DAILY #30 tablet 11/05/16 Unknown Rx TAB (Theragran)] Thiamine [Vitamin B-1] 100 mg PO QDAY #30 tablet 11/05/16 Unknown Rx chlordiazePOXIDE [Librium] 25 mg PO DAILY #5 capsule 11/05/16 Unknown Rx Acetaminophen/Codeine [Tylenol 1 tab PO Q6H PRN #12 tab 10/26/20 Unknown Rx /Codeine # 3 tab] Naproxen [Naprosyn TAB] 500 mg PO BID PRN #14 tablet 10/26/20 Unknown Rx Allergies Allergy/AdvReac Type Severity Reaction Status Date / Time codeine Allergy Itching Verified 10/26/20 08:31 ED Review of Systems ROS: Stated complaint: FINGER INJURY Other details as noted in HPI Constitutional: denies: chills, fever Musculoskeletal: joint swelling, arthralgia Skin: denies: change in color Neurological: numbness, paresthesias ED Past Medical Hx - Past Medical History Hx Hypertension: Yes Hx Congestive Heart Failure: No Hx Diabetes: No Hx Asthma: No Hx COPD: No Hx HIV: No Additional medical history: Pancreatitis - Surgical History Hx Cholecystectomy: Yes - Social History Smoking Status: Current Every Day Smoker Substance Use Type: None - Medications Home Medications: Home Medications Medication Instructions Recorded Confirmed Last Taken Type Folic Acid [Folvite] 1 mg PO DAILY #30 tablet 11/05/16 Unknown Rx Metoprolol [Lopressor TAB] 25 mg PO BID #60 tablet 11/05/16 Unknown Rx Multivitamin Tab [Multiple Vitamin 1 each PO DAILY #30 tablet 11/05/16 Unknown Rx TAB (Theragran)] Thiamine [Vitamin B-1] 100 mg PO QDAY #30 tablet 11/05/16 Unknown Rx chlordiazePOXIDE [Librium] 25 mg PO DAILY #5 capsule 11/05/16 Unknown Rx Acetaminophen/Codeine [Tylenol 1 tab PO Q6H PRN #12 tab 10/26/20 Unknown Rx /Codeine # 3 tab] Naproxen [Naprosyn TAB] 500 mg PO BID PRN #14 tablet 10/26/20 Unknown Rx ED Physical Exam - General Limitations: No Limitations General appearance: alert, in no apparent distress - Head Head exam: Present: atraumatic, normocephalic - Eye Eye exam: Present: normal appearance. Absent: scleral icterus - Respiratory Respiratory exam: Absent: respiratory distress - Cardiovascular Cardiovascular Exam: Present: regular rate - Expanded Upper Extremity Exam Left Forearm Wrist exam: Present: normal inspection Hand Wrist exam: Present: tenderness, swelling, ecchymosis, deformity (Fourth digit appears to be displaced at the PIP joint and there appears to be displacement of the fifth digit at the MCP joint; normal sensation present; decreased range of motion noted). Absent: erythema Neuro motor exam: Present: wrist extension intact Vascular: Present: normal capillary refill. Absent: vascular compromise, pulse deficit radial art - Neurological Exam Neurological exam: Present: alert, oriented X3 - Psychiatric Psychiatric exam: Present: normal affect, normal mood - Skin Skin exam: Present: warm, dry, abrasion (Right hand). Absent: rash, cyanosis, diaphoretic, erythema, pallor ED Course Vital Signs 10/26/20 10/26/20 10/26/20 08:33 13:00 13:36 Temperature 97.9 F Pulse Rate 100 H 97 H Respiratory 20 Rate Blood Pressure 179/114 Blood Pressure 173/110 167/101 [Left] O2 Sat by Pulse 97 Oximetry - Procedure Description Procedures done: Fingers prepped using Betadine. Digital block performed on the left fourth and fifth digit using 15 cc of lidocaine 1% without epinephrine. Reduction of the fourth finger and fifth metacarpal performed. Patient placed in an ulnar gutter splint post procedure. She tolerated procedure well without any immediate complications. Normal perfusion of the fingers and range of calvin on of the fingers noted post reduction. ED Medical Decision Making - Radiology Data Radiology results: report reviewed LEFT HAND 3 VIEWS INDICATION / CLINICAL INFORMATION: PAIN AND DEFORMITY. COMPARISON: None available. FINDINGS: Transverse, significantly displaced fracture of the base of the fifth finger proximal phalanx. Angulation of the fourth finger is abnormal. Although not optimally demonstrated, I strongly suspect dislocation of the fourth metacarpal phalangeal joint, with no obvious fracture. LEFT HAND 3 VIEWS INDICATION / CLINICAL INFORMATION: relocation of fifth and 4th digits COMPARISON: Earlier the same day. FINDINGS: BONES / JOINT(S): Interval reduction at the fourth metacarpophalangeal joint. Partial reduction is seen at the fracture at the base of the proximal phalanx of the fifth digit. SOFT TISSUES: No significant abnormality. - Medical Decision Making 55-year-old -[place] female patient presents with complaints of left hand pain and injury after a fall yesterday. She states the fourth and fifth digit are painful and deformed with moderate swelling. She does admit to some numbness. Patient also has decreased range of motion. History of hypertension per patient. X-ray showed the following: Transverse, significantly displaced fracture of the base of the fifth finger proximal phalanx. Angulation of the fourth finger is abnormal. Although not optimally demonstrated, I strongly suspect dislocation of the fourth metacarpal phalangeal joint, with no obvious fracture. Reduction of fracture performed along with relocation of the fourth digit. Repeat x-ray showed partial reduction of the fracture and successful reduction of the fourth digit. Patient placed in ulnar gutter splint. She tolerated procedure well without any immediate complications. Blood pressure noted to be elevated at 178/114-patient has history of hypertension and states she has not taken her blood pressure medication today. She denies any headache, chest pain, shortness of breath, dizziness, or other symptoms. With improvement in pain, pressure has improved somewhat to 167/101. Discussed importance of blood pressure control and when to seek emergency treatment regarding blood pressure and symptoms, patient verbalized understanding peer she is well-appearing and stable for discharge home. Patient informed to call orthopedics today, Dr. Aguilera, for further evaluation and treatment. Discussed signs and symptoms that should prompt immediate return to the emergency department in detail with patient who verbalizes understanding. Critical care attestation.: If time is entered above; I have spent that time in minutes in the direct care of this critically ill patient, excluding procedure time. ED Disposition Clinical Impression: Fracture of base of fifth metacarpal bone of left hand Qualifiers: Encounter type: initial encounter Fracture type: closed Fracture alignment: displaced Qualified Code(s): S62.317A - Displaced fracture of base of fifth metacarpal bone, left hand, initial encounter for closed fracture Dislocation, finger closed Qualifiers: Encounter type: initial encounter Qualified Code(s): S63.259A - Unspecified dislocation of unspecified finger, initial encounter Disposition: TO HOME OR SELFCARE Is pt being admited?: No Condition: Stable Instructions: Finger or Thumb Dislocation, Metacarpal Fracture, Cast or Splint Care, Adult Prescriptions: Naproxen [Naprosyn TAB] 500 mg PO BID PRN #14 tablet PRN Reason: Pain, Moderate (4-6) Acetaminophen/Codeine [Tylenol /Codeine # 3 tab] 1 tab PO Q6H PRN #12 tab PRN Reason: Pain , Severe (7-10) Referrals: NURYS AGUILERA MD [Staff Physician] - 10/26/20
[2020-10-26] MEDS ORDERED: LIDOCAINE (1%) 10 MG/1 ML VIAL 20 ML MDV INFILTRATI ONE (09:42)
--- NOTE | 2020-10-26 10:21 | XRay Report ---
LEFT HAND 3 VIEWS INDICATION / CLINICAL INFORMATION: PAIN AND DEFORMITY. COMPARISON: None available. FINDINGS: Transverse, significantly displaced fracture of the base of the fifth finger proximal phalanx. Angulation of the fourth finger is abnormal. Although not optimally demonstrated, I strongly suspect dislocation of the fourth metacarpal phalangeal joint, with no obvious fracture. Signer Name: Francisco Regan MD Signed: 10/26/2020 10:17 AM Workstation Name: [id number]
[2020-10-26] MEDS ORDERED: DIPHtheria,PERTUSSIS(ACELL),TETANUS VACCINE/PF 0.5 ML VIAL IM ONE (10:40)
--- NOTE | 2020-10-26 11:46 | XRay Report ---
LEFT HAND 3 VIEWS INDICATION / CLINICAL INFORMATION: relocation of fifth and 4th digits COMPARISON: Earlier the same day. FINDINGS: BONES / JOINT(S): Interval reduction at the fourth metacarpophalangeal joint. Partial reduction is se en at the fracture at the base of the proximal phalanx of the fifth digit. SOFT TISSUES: No significant abnormality. ADDITIONAL FINDINGS: None. Signer Name: Ariel Acosta MD Signed: 10/26/2020 11:42 AM Workstation Name: [id number]
[2020-10-26 13:36] VITALS: BP 167/101
== END 2020-10-26 13:45 | disposition home or self-care (01) ==
LOC: ED 08:24
DX: S62.317A Displaced fracture of base of fifth metacarpal bone, left hand, initial encounter for closed fracture (principal); S63.259A Unspecified dislocation of unspecified finger, initial encounter; I10 Essential (primary) hypertension; F17.200 Nicotine dependence, unspecified, uncomplicated; Z79.899 Other long term (current) drug therapy; Z88.6 Allergy status to analgesic agent; W18.30XA Fall on same level, unspecified, initial encounter; Y93.89 Activity, other specified; Y92.89 Other specified places as the place of occurrence of the external cause; Y99.8 Other external cause status
CPT/HCPCS: 90471; 90715; 99283; Q0162

== ENCOUNTER 2021-06-03 17:22 | Emergency (ER) | payer SELFPAY ==
[2021-06-03 18:38] VITALS: BP 129/95
--- NOTE | 2021-06-03 19:26 | Event Note ---
ED Screening Note Date of service: 06/03/21 Time: 19:24 ED Screening Note: 56-year-old female patient with history of hypertension presents to the emergency department via EMS following an episode of altered mental status for unknown duration. Patient states she remembers being in the grocery store eating a sandwich and she remembers waking up in the back of the ambulance. Patient cannot recall the events that took place in the interim. Patient is unsure how long this period of amnesia lasted. Currently, patient is asymptomatic. She states she has never experienced an episode like this before. Patient drinks alcohol a couple of days per week. Last alcohol intake was 2 days ago. Patient admits she has not taken her blood pressure medication in several months. Currently, patient is asymptomatic without complaints. General: Awake, appropriately interactive, no acute distress. Neck: Supple. Full range of motion intact. Cardiovascular: Normal peripheral perfusion. Pulmonary: No respiratory distress. Patient is speaking normally without use of accessory muscles. Skin: No apparent rashes or lesions. Neurological: No facial asymmetry. Speech is clear. Follows commands. Patient is alert and oriented. Musculoskeletal: Moves all four extremities spontaneously with normal range of motion. Psych: Cooperative. Appropriate mood and affect. I have greeted and performed a focused rapid initial assessment of this patient. A comprehensive ED assessment and evaluation of the patient, analysis of all test results, and completion of the medical decision-making process will be conducted by additional ED providers. This initial assessment/diagnostic orders/clinical plan/treatment(s) is/are subject to change based on patients health status, clinical progression and re-assessment. Further treatment and workup at subsequent clinical provider's discretion. Patient/guardian urged not to elope from the ED as their condition may be serious if not clinically assessed and managed.
[2021-06-03 19:41] LABS: Bilirubin,Urine NEG (Negative); Blood,Urine SM (Negative); Color,Urine Yellow (Yellow); Mucus,Urine FEW /HPF
[2021-06-03 19:49] LABS: Basophils % (Auto) 0.4 % (0.0-1.8); Eosinophils % (Auto) 0.1 % (0.0-4.3); Hematocrit 35.9 % (30.3-42.9); Lymphocytes # (Auto) 0.5 K/mm3 (1.2-5.4); Lymphocytes % (Auto) 6.4 % (13.4-35.0); Mean Corpuscular HGB Conc 34 % (30-34); Mean Corpuscular Volume 94 fl (79-97); Monocytes # (Auto) 0.5 K/mm3 (0.0-0.8); Monocytes % (Auto) 5.8 % (0.0-7.3); Platelet Count 197 K/mm3 (140-440); Red Blood Count 3.81 M/mm3 (3.65-5.03); Red Cell Distribution Width 15.2 % (13.2-15.2)
[2021-06-03 20:07] LABS: Alanine Aminotransferase 79 units/L (7-56); Albumin 3.8 g/dL (3.9-5); BUN/Creatinine Ratio 21; Blood Urea Nitrogen 29 mg/dL (7-17); Calcium 8.1 mg/dL (8.4-10.2); Hemolysis Index 81
[2021-06-03] MEDS ORDERED: MAGNESIUM OXIDE 400 MG TAB PO ONE (20:44)
[2021-06-03] MEDS ORDERED: LORazepam 2 MG/ML VIAL IV ONE (20:44)
[2021-06-03 20:53] LABS: Amphetamine Screen,Urine Negative; Benzodiazepines Screen,Urine Negative; Cannabinoid Screen,Urine Negative; Methadone Screen,Urine Negative; Opiate Screen,Urine Negative
--- NOTE | 2021-06-03 20:58 | Emergency Department Report ---
ED Seizure HPI - General Chief Complaint: Seizure Stated Complaint: SEIZURE Time Seen by Provider: 06/03/21 20:19 Source: patient, EMS, old records reviewed Mode of arrival: Wheelchair Limitations: No Limitations - History of Present Illness Initial Comments: 56-year-old female with a past medical history of alcohol abuse, hypertension, previous cholecystectomy and pancreatitis presents to the hospital with possible seizure. EMS states that patient had an episode of "shaking" while at the grocery store. Her thought that patient had a seizure. No history of seizures reported. Patient states she only remembers being in the store and then being in the ambulance. She has superficial bite lanier to the right lateral portion of the tongue. She denies urinary incontinence. Patient drinks 3-4 mixed liquor drinks daily but since quit cold turkey 2 days ago. She has a history of alcohol withdrawal tremors and has been feeling tremulous but denies history of alcohol withdrawal seizures. Patient complains of a mild headache to the top of her head secondary to being hungry. She denies blurry vision, nausea, vomiting, chest pain, shortness of breath, focal weakness, or numbness. - Related Data Previous Rx's Medication Instructions Recorded Last Taken Type Metoprolol [Lopressor TAB] 25 mg PO BID #60 tablet 11/05/16 Unknown Rx Acetaminophen/Codeine [Tylenol 1 tab PO Q6H PRN #12 tab 10/26/20 Unknown Rx /Codeine # 3 tab] Naproxen [Naprosyn TAB] 500 mg PO BID PRN #14 tablet 10/26/20 Unknown Rx Folic Acid [Folvite] 1 mg PO DAILY #30 tablet 06/03/21 Unknown Rx Magnesium Carb,Citrate,Oxide 300 mg PO DAILY #20 tablet 06/03/21 Unknown Rx [Magnesium Complex] Multivitamin/Iron/Folic Acid 1 each PO DAILY #30 tablet 06/03/21 Unknown Rx [Centrum Adults Tablet] Thiamine HCl 250 mg PO QDAY #30 tablet 06/03/21 Unknown Rx chlordiazePOXIDE [Librium] 25 mg PO Q6H #20 capsule 06/03/21 Unknown Rx Allergies Allergy/AdvReac Type Severity Reaction Status Date / Time codeine Allergy Itching Verified 10/26/20 08:31 ED Review of Systems ROS: Stated complaint: SEIZURE Other details as noted in HPI Comment: All other systems reviewed and negative ED Past Medical Hx - Past Medical History Previous Medical History?: Yes Hx Hypertension: Yes Hx Congestive Heart Failure: No Hx Diabetes: No Hx Asthma: No Hx COPD: No Hx HIV: No Additional medical history: Pancreatitis - Surgical History Hx Cholecystectomy: Yes - Social History Smoking Status: Current Every Day Smoker Substance Use Type: None - Medications Home Medications: Home Medications Medication Instructions Recorded Confirmed Last Taken Type Metoprolol [Lopressor TAB] 25 mg PO BID #60 tablet 11/05/16 Unknown Rx Acetaminophen/Codeine [Tylenol 1 tab PO Q6H PRN #12 tab 10/26/20 Unknown Rx /Codeine # 3 tab] Naproxen [Naprosyn TAB] 500 mg PO BID PRN #14 tablet 10/26/20 Unknown Rx Folic Acid [Folvite] 1 mg PO DAILY #30 tablet 06/03/21 Unknown Rx Magnesium Carb,Citrate,Oxide 300 mg PO DAILY #20 tablet 06/03/21 Unknown Rx [Magnesium Complex] Multivitamin/Iron/Folic Acid 1 each PO DAILY #30 tablet 06/03/21 Unknown Rx [Centrum Adults Tablet] Thiamine HCl 250 mg PO QDAY #30 tablet 06/03/21 Unknown Rx chlordiazePOXIDE [Librium] 25 mg PO Q6H #20 capsule 06/03/21 Unknown Rx ED Physical Exam - General Limitations: No Limitations - Other Other exam information: General: No acute distress Head: Atraumatic Eyes: normal appearance ENT: Moist mucous membranes, mild superficial bite lanier to the right lateral tongue Neck: Normal appearance, no midline tenderness Chest: Clear to auscultation bilaterally CV: Regular rate and rhythm Abdomen: Soft, normal bowel sounds, nontender, nondistended, no rebound or guarding Back: Normal inspection Extremity: Normal inspection, full range of motion Neuro: Alert O x 3, no facial asymmetry, speech clear, no gross motor sensory deficit, mild resting tremor, [id number] function intact Psych: Appropriate behavior Skin: No rash ED Course Vital Signs 06/03/21 18:35 Temperature 98.0 F Pulse Rate 91 H Respiratory 18 Rate Blood Pressure 129/95 O2 Sat by Pulse 99 Oximetry ED Medical Decision Making - Lab Data Result diagrams: 06/03/21 19:32 06/03/21 19:32 Lab Results 06/03/21 06/03/21 06/03/21 Range/Units 19:32 19:32 19:32 WBC 8.4 (4.5-11.0) K/mm3 RBC 3.81 (3.65-5.03) M/mm3 Hgb 12.0 (10.1-14.3) gm/dl Hct 35.9 (30.3-42.9) % MCV 94 (79-97) fl MCH 32 (28-32) pg MCHC 34 (30-34) % RDW 15.2 (13.2-15.2) % Plt Count 197 (140-440) K/mm3 Lymph % (Auto) 6.4 L (13.4-35.0) % [place] % (Auto) 5.8 (0.0-7.3) % Eos % (Auto) 0.1 (0.0-4.3) % Baso % (Auto) 0.4 (0.0-1.8) % Lymph # (Auto) 0.5 L (1.2-5.4) K/mm3 [place] # (Auto) 0.5 (0.0-0.8) K/mm3 Eos # (Auto) 0.0 (0.0-0.4) K/mm3 Baso # (Auto) 0.0 (0.0-0.1) K/mm3 Seg Neutrophils % 87.3 H (40.0-70.0) % Seg Neutrophils # 7.4 (1.8-7.7) K/mm3 Sodium 132 L (137-145) mmol/L Potassium 4.0 (3.6-5.0) mmol/L Chloride 87.6 L (98-107) mmol/L Carbon Dioxide 24 (22-30) mmol/L Anion Gap 24 mmol/L BUN 29 H (7-17) mg/dL Creatinine 1.4 H (0.6-1.2) mg/dL Estimated GFR 47 ml/min BUN/Creatinine Ratio 21 % Glucose 115 H (65-100) mg/dL Calcium 8.1 L (8.4-10.2) mg/dL Magnesium 1.10 L (1.7-2.3) mg/dL Total Bilirubin 0.90 (0.1-1.2) mg/dL AST 159 H (5-40) units/L ALT 79 H (7-56) units/L Alkaline Phosphatase 157 H (35-129) units/L Troponin T < 0.010 (0.00-0.029) ng/mL Total Protein 8.0 (6.3-8.2) g/dL Albumin 3.8 L (3.9-5) g/dL Albumin/Globulin Ratio 0.9 % Urine Color (Yellow) Urine Turbidity (Clear) Urine pH (5.0-7.0) Ur Specific [place] (1.003-1.030) Urine Protein (Negative) mg/dL Urine Glucose (UA) (Negative) mg/dL Urine Ketones (Negative) mg/dL Urine Blood (Negative) Urine Nitrite (Negative) Urine Bilirubin (Negative) Urine Urobilinogen (<2.0) mg/dL Ur Leukocyte Esterase (Negative) Urine WBC (Auto) (0.0-6.0) /HPF Urine RBC (Auto) (0.0-6.0) /HPF U Epithel Cells (Auto) (0-13.0) /HPF Urine Mucus /HPF Urine Opiates Screen Urine Methadone Screen Ur Barbiturates Screen Ur Phencyclidine Scrn Ur Amphetamines Screen U Benzodiazepines Scrn Urine Cocaine Screen U Marijuana (THC) Screen Drugs of Abuse Note Plasma/Serum Alcohol < 0.01 (0-0.07) % 06/03/21 06/03/21 Range/Units Unknown Unknown WBC (4.5-11.0) K/mm3 RBC (3.65-5.03) M/mm3 Hgb (10.1-14.3) gm/dl Hct (30.3-42.9) % MCV (79-97) fl MCH (28-32) pg MCHC (30-34) % RDW (13.2-15.2) % Plt Count (140-440) K/mm3 Lymph % (Auto) (13.4-35.0) % [place] % (Auto) (0.0-7.3) % Eos % (Auto) (0.0-4.3) % Baso % (Auto) (0.0-1.8) % Lymph # (Auto) (1.2-5.4) K/mm3 [place] # (Auto) (0.0-0.8) K/mm3 Eos # (Auto) (0.0-0.4) K/mm3 Baso # (Auto) (0.0-0.1) K/mm3 Seg Neutrophils % (40.0-70.0) % Seg Neutrophils # (1.8-7.7) K/mm3 Sodium (137-145) mmol/L Potassium (3.6-5.0) mmol/L Chloride (98-107) mmol/L Carbon Dioxide (22-30) mmol/L Anion Gap mmol/L BUN (7-17) mg/dL Creatinine (0.6-1.2) mg/dL Estimated GFR ml/min BUN/Creatinine Ratio % Glucose (65-100) mg/dL Calcium (8.4-10.2) mg/dL Magnesium (1.7-2.3) mg/dL Total Bilirubin (0.1-1.2) mg/dL AST (5-40) units/L ALT (7-56) units/L Alkaline Phosphatase (35-129) units/L Troponin T (0.00-0.029) ng/mL Total Protein (6.3-8.2) g/dL Albumin (3.9-5) g/dL Albumin/Globulin Ratio % Urine Color Yellow (Yellow) Urine Turbidity Slightly-cloudy (Clear) Urine pH 5.0 (5.0-7.0) Ur Specific [place] 1.015 (1.003-1.030) Urine Protein 100 mg/dl (Negative) mg/dL Urine Glucose (UA) 50 (Negative) mg/dL Urine Ketones 20 (Negative) mg/dL Urine Blood Sm (Negative) Urine Nitrite Neg (Negative) Urine Bilirubin Neg (Negative) Urine Urobilinogen 4.0 (<2.0) mg/dL Ur Leukocyte Esterase Neg (Negative) Urine WBC (Auto) 2.0 (0.0-6.0) /HPF Urine RBC (Auto) 3.0 (0.0-6.0) /HPF U Epithel Cells (Auto) 7.0 (0-13.0) /HPF Urine Mucus Few /HPF Urine Opiates Screen Negative Urine Methadone Screen Negative Ur Barbiturates Screen Negative Ur Phencyclidine Scrn Negative Ur Amphetamines Screen Negative U Benzodiazepines Scrn Negative Urine Cocaine Screen Negative U Marijuana (THC) Screen Negative Drugs of Abuse Note Disclamer Plasma/Serum Alcohol (0-0.07) % - EKG Data -: EKG Interpreted by Ct EKG shows normal: sinus rhythm, intervals (QTC 494), ST-T waves (Diffuse T wave inversion) Rate: normal (Sinus rate 88) - Medical Decision Making 56-year female presents to the hospital after probable seizure activity given witnessed report, amnesia, alcohol withdrawal symptoms, and mild tongue biting noted on exam. I recommended patient receive CT head scan states she has a persistent mild headache, IV fluids/banana bag given signs of dehydration on labs, IV magnesium given hypomagnesemia, Ativan given mild tremor with history of alcohol withdrawal seizures. Patient declined CT head and IV fluids/electrolytes because she needs to get home to pack up her home because she needs to leave the home tonight. Explained the risk of further seizures as well as undiagnosed head injury. Patient expressed understanding and will only accept a dose of IV Ativan and p.o. magnesium prior to discharge since other treatment will prolong her ED stay. as per RN note pt refused Mag prior to d/c Critical Care Time: No Critical care attestation.: If time is entered above; I have spent that time in minutes in the direct care of this critically ill patient, excluding procedure time. ED Disposition Clinical Impression: Hypomagnesemia, Alcohol withdrawal, Alcohol withdrawal seizure, Dehydration, Acute renal insufficiency, Elevated liver enzymes Disposition: 07 LEFT AGAINST MEDICAL ADVICE Is pt being admited?: No Does the pt Need Aspirin: No Condition: Stable Instructions: Alcohol Withdrawal Syndrome, Hypomagnesemia, Dehydration, Adult, [id number] Additional Instructions: You have declined recommending CAT scan of your head to rule out a head bleed given your new onset seizure and persistent headache. You have declined IV fluids for treatment of your mild renal insufficiency likely secondary to dehydration. You have declined IV treatment of your electrolyte abnormalities primarily magnesium. You are at risk for repeated seizures which may lead to morbidity and mortality. You have been prescribed oral Librium to help with alcohol withdrawal seizures and symptoms as well as oral magnesium for electrolyte replacement and multivitamins. Please drink plenty of fluids. Please follow-up very closely with a physician for reevaluation and return if symptoms worsen as indicated by your discharge instructions. SUBSTANCE ABUSE PROGRAMS: [facility]: Location: [place], [place] [employer] Address: [address] [place] [id number] [facility]: Address: [address] [place], [place] [id number] [facility]: Address: [address] [place] [address] [facility]: Address: [address] [id number] Prescriptions: Multivitamin/Iron/Folic Acid [Centrum Adults Tablet] 1 each PO DAILY #30 tablet Folic Acid [Folvite] 1 mg PO DAILY #30 tablet chlordiazePOXIDE [Librium] 25 mg PO Q6H #20 capsule Magnesium Carb,Citrate,Oxide [Magnesium Complex] 300 mg PO DAILY #20 tablet Thiamine HCl 250 mg PO QDAY #30 tablet Referrals: PRIMARY CAREMD [Primary Care Provider] - 3-5 Days [facility] [Provider Group] - 3-5 Days [facility] [Other] - 3-5 Days (Help with alcohol addiction) TAMMY MARTINEZ MD [Staff Physician] - 3-5 Days Forms: AMA Form
[2021-06-03 21:06] LABS: Cocaine Screen,Urine Negative
--- NOTE | 2021-06-05 10:55 | Electrocardiograph Report ---
[facility], [place] Test Date: 2021-06-03 Test Time: 20:18:30 Pat Name: REBECCA AVLLECILLO Department: Room: Gender: F Community Coordinator: JESSICA : 1965 Requested By: VERÓNICA ELLIOTT Order Number: [id number] Reading MD: Abraham Dickey Measurements Intervals [place] Rate: 88 P: 58 OK: 190 QRS: 56 QRSD: 93 T: -74 QT: 407 QTc: 494 Interpretive Statements Sinus rhythm Probable left atrial enlargement Nonspecific T abnormalities, diffuse leads No previous ECG available for comparison Electronically Signed On 06-05-2021 10:55:06 EDT by Abraham Dickey
== END 2021-06-03 21:40 | disposition left against medical advice (07) ==
LOC: ED 17:22
DX: E83.42 Hypomagnesemia (principal); N28.9 Disorder of kidney and ureter, unspecified; R74.8 Abnormal levels of other serum enzymes; E86.0 Dehydration; F10.239 Alcohol dependence with withdrawal, unspecified; I10 Essential (primary) hypertension; F17.200 Nicotine dependence, unspecified, uncomplicated; Z88.6 Allergy status to analgesic agent; Z79.899 Other long term (current) drug therapy; Z90.49 Acquired absence of other specified parts of digestive tract
CPT/HCPCS: 36415; 80053; 80307; 81001; 83735; 84484; 85025; 93005; 96374; 99284; J2060; 80320; G0480